=== PATIENT | male | born 1975 | race Caucasian/White ===

== ENCOUNTER 2017-05-10 10:10 | Emergency (ER) | payer BC ==
--- NOTE | ~2017-05-10 | CR230 ---
[facility] A Service of [facility] RADIOLOGY TEXT RESULTS PATIENT: LAURA MAZNANO LOCATION: SED : 79 UNIT #: [id number] AGE: [address]: YURY LOPEZ SEX: M ORDER DR: [id number] [place] [id number] E MR#: [id number] #: [id number] NAME: LAURA MANZANO : 1975 SEX: M STUDY DATE/TIME: 05/10/2017 UNIT: SED ROOM: STUDY DESCRIPTION: CR Shoulder Min 2 View Rt Attending Physician: Bijal Chino Ordering Physician: Bijal Chino Primary Care Physician: Ligia Santiago M.D. MEDICAL IMAGING REPORT This report is preliminary unless electronic signature is present. EXAM Right shoulder 3 views 05/10/2017 1022 hours. HISTORY Patient fell last night after diving for ball. Patient landed on shoulder with pain. COMPARISON None FINDINGS AP views in internal and external rotation and scapula Y-view demonstrate no acute fracture or dislocation. Clavicle is intact. There is minimal spurring at the acromioclavicular joint. Upper ribs are normal. IMPRESSION Trace spurring at the acromioclavicular joint. Otherwise, negative right shoulder. No fracture or dislocation. Dictated by... Richa Pena M.D. THIS IS AN ELECTRONICALLY VERIFIED REPORT Richa Pena M.D. at 05/11/2017 8:53 AM LINDA/cydney TD: 05/10/2017 15:01 JOB #: [id number] MEDICAL IMAGING REPORT [facility] A Service [facility] RADIOLOGY TEXT RESULTS PATIENT: LAURA MANZANO LOCATION: SED : 79 UNIT #: [id number] AGE: [address]: YURY JOHN SEX: M ORDER DR: Page 1 of 1
[~2017-05-10 10:10] MED LIST: KLONOPIN PO; PRILOSEC40 MG PO; ZYRTEC-D T1 TAB.SR . PO
[2017-05-10] MEDS ORDERED: ZANTAC (10:21)
== END 2017-05-10 11:04 | disposition home or self-care (01) ==
LOC: SED 10:10
DX: S46.911A Strain of unspecified muscle, fascia and tendon at shoulder and upper arm level, right arm, initial encounter (principal); W19.XXXA Unspecified fall, initial encounter; Y92.009 Unspecified place in unspecified non-institutional (private) residence as the place of occurrence of the external cause
CPT/HCPCS: 73030; 99283